=== PATIENT | male | born 1975 | race African-American/Black ===

== ENCOUNTER 2017-10-31 17:50 | Emergency (ER) | payer OTHER | END 2017-10-31 20:20 | disposition home or self-care (01) | LOC: E/R 17:50 | DX: L02.414 Cutaneous abscess of left upper limb (principal) | CPT/HCPCS: 99284; Z7502 ==

== ENCOUNTER 2017-12-17 13:48 | Emergency (ER) | payer OTHER | END 2017-12-17 14:24 | disposition home or self-care (01) | LOC: E/R 14:24 | DX: Z76.0 Encounter for issue of repeat prescription (principal); L98.9 Disorder of the skin and subcutaneous tissue, unspecified | CPT/HCPCS: 99281; Z7502 ==